=== PATIENT | male | born 1960 | race Caucasian/White ===

== ENCOUNTER → 2016-07-24 | Outpatient (CLI) | payer MEDICAID ==
[~2016-07-24] MED LIST: IMITREX100 MG PO
[2016-07-24 17:56] LABS: HEMOGLOBIN 12.5 g/dL (14.1-18.0)
[2016-07-24 17:57] LABS: LYMPH # 2.2 K/mm3 (0.7-4.5)
[2016-07-24 18:08] LABS: BUN 13 mg/dL (7-18)
[2016-07-24 18:21] LABS: GFR (ESTIMATED) 101 ML/MIN (>60)
[2016-07-26 09:36] LABS: RA Latex Turbid. 155.7 IU/mL (0.0-13.9)
[2016-07-28 16:36] LABS: Antinuclear Antibodies, IFA Positive (.)
== END ==
LOC: LAB 15:26
PROVIDERS: Emergency Medicine
DX: Z00.00 Encounter for general adult medical examination without abnormal findings (principal)